=== PATIENT | male | born 1970 | race Caucasian/White ===

== ENCOUNTER → 2017-01-07 | Outpatient (CLI) | payer MEDICARE, OTHER ==
--- NOTE | 2017-01-07 16:47 | KCIC ---
PROCEDURE Two-view chest. HISTORY Chronic cough COMPARISON No comparison. FINDINGS The cardiomediastinal silhouette is normal. Low lung volumes. Mild bibasilar airspace disease. No lobar consolidation. No pleural effusion or pneumothorax. No acute bone abnormality. IMPRESSION Low lung volumes. Mild bibasilar airspace disease. Electronically signed by: Joni Lora MD (January 07, 2017 16:45:33)
== END | disposition home or self-care (01) ==
LOC: KCIC 15:55
PROVIDERS: ATTEND Family Medicine
DX: R05 Cough (principal)
CPT/HCPCS: 71020

== ENCOUNTER → 2017-07-20 | Outpatient (CLI) | payer MEDICARE, OTHER ==
--- NOTE | 2017-07-21 15:52 | SLEEP ---
DATE OF STUDY: 07/20/2017 ATTENDING PHYSICIAN: Dr. Escobar Gaston. The patient is a 47-year-old who weighs 192 pounds with a BMI of 29. The patient's Alden score was 5. A diagnostic study was performed at [facility]. During the night study, the patient spent 428 minutes in bed and slept for 258 minutes with low sleep efficiency of 60%. Sleep latency was 27 minutes with a REM latency of 293 minutes. Overall, sleep architecture showed increased stage 1 and stage 2 sleep, normal slow wave and normal REM sleep. During the night study, the patient had 44 obstructive apneas, 42 hypopneas, 14 mixed apneas and 1 central apnea. The patient's apnea-hypopnea index was 24 per hour, supine index 53 per hour and a REM index of 7 per hour. EKG monitoring revealed normal sinus rhythm. Occasional premature atrial contractions were seen. Average heart rate was 79 beats per minute. Periodic limb movements in sleep were seen at index of 4 per hour and 1 per hour caused EEG arousal. Nocturnal oximetry study revealed a mean oxygen saturation of 94% with the lowest of 88%. 5% of the time oxygen saturation remained between 80% and 89%. Due to poor sleep efficiency the patient could not be placed on CPAP. IMPRESSION: 1. Moderate sleep apnea-hypopnea syndrome with worsening during supine sleep. Total apnea-hypopnea index of 24 per hour with a supine apnea-hypopnea index of 53 per hour. 2. Mild nocturnal hypoxia secondary to obstructive sleep apnea. 3. No clinically significant periodic limb movements in sleep. RECOMMENDATIONS: 1. The patient should return to the sleep lab for CPAP titration. 2. Avoid supine sleep. 3. Alternate treatment option would include oral appliance. 4. Weight loss is advised. 5. Avoid central nervous system depressants. 6. Cautioned regarding driving until the patient's sleep apnea is effectively treated with the above recommendations. MASSIEL LUCERO MD DR: EVONNE/nts JOB#: [id number] / [id number] [facility] ESCOBAR GASTON MD [facility]
== END | disposition home or self-care (01) ==
LOC: RT 18:43
PROVIDERS: ATTEND Family Medicine
DX: G47.33 Obstructive sleep apnea (adult) (pediatric) (principal)
CPT/HCPCS: 95810

== ENCOUNTER → 2017-09-14 | Outpatient (CLI) | payer MEDICARE, OTHER ==
[2017-09-14] MEDS: ZOLPIDEM 5 MG TABLET. PO (23:00)
== END | disposition home or self-care (01) ==
LOC: SLPLAB 18:43
DX: G47.33 Obstructive sleep apnea (adult) (pediatric) (principal); D75.1 Secondary polycythemia
CPT/HCPCS: 95810